=== PATIENT | female | born 2000 | race Caucasian/White ===

== ENCOUNTER 2020-12-18 13:56 | Emergency (ER) | payer MEDICAID ==
[~2020-12-18] VITALS: Ht 167.6 cm; Wt 90.3 kg
[2020-12-18] MEDS ORDERED: ACETAMINOPHEN500 MG PO (14:13)
[2020-12-18] MEDS ORDERED: XANAX1 MG PO (14:30)
[2020-12-18] MEDS ORDERED: LEVOTHYROXINE13 MCG PO (14:30)
[2020-12-18] MEDS ORDERED: PAROXETINE7.5 MG PO (14:31)
[2020-12-18] MEDS ORDERED: CRUTCH1 EACH MISC (16:05)
== END 2020-12-18 16:10 | disposition home or self-care (01) ==
LOC: ED 13:56
DX: S93.401A Sprain of unspecified ligament of right ankle, initial encounter (principal); X50.9XXA Other and unspecified overexertion or strenuous movements or postures, initial encounter; Z79.899 Other long term (current) drug therapy
CPT/HCPCS: 73610; 99283-25; A9270

== ENCOUNTER 2021-12-21 20:15 | Emergency (ER) | payer MEDICAID ==
[~2021-12-21] VITALS: Ht 167.6 cm; Wt 84.0 kg
[~2021-12-21 20:15] MED LIST: ACETAMINOPHEN500 MG PO; CRUTCH1 EACH MISC; LEVOTHYROXINE13 MCG PO; PAROXETINE7.5 MG PO; XANAX1 MG PO
--- NOTE | 2021-12-25 19:05 | EKG ---
[facility] [address] [place], [place] [address] Signed Sinus tachycardia Nonspecific T wave abnormality Abnormal ECG No previous ECGs available Confirmed by TRENT DE LA GARZA MD ([id number] on 12/25/2021 7:05:00 PM Electronically Signed By: TRENT DE LA GARZA MD 12/25/21 1905 PATIENT NAME: GLORIA ROOT Electrocardiogram DATE OF : [birth year] PHYSICIAN: TRENT DE LA GARZA MD REPORT #: [id number] REPORT IS CONFIDENTIAL AND NOT TO BE RELEASED WITHOUT AUTHORIZATION
== END 2021-12-21 23:19 | disposition home or self-care (01) ==
LOC: ED 20:15
DX: B34.9 Viral infection, unspecified (principal); Z79.899 Other long term (current) drug therapy; Z20.822 Contact with and (suspected) exposure to COVID-19
CPT/HCPCS: 36415; 71045; 74177; 80053; 81001; 83605; 84703; 85025; 85610; 85730; 93005; 93010; 99284-25; A9270; C9803; J7030; Q9967; U0003